=== PATIENT | female | born 2000 | race African-American/Black ===

== ENCOUNTER 2022-06-15 18:08 | Emergency (ER) | payer OTHER, SELFPAY ==
--- NOTE | ~2022-06-15 | XR_ITS ---
EXAMINATION: XR CHEST CLINICAL INFORMATION: Chest pain COMPARISON: Chest x-ray on 10/14/2015 TECHNIQUE: 2 views of the chest were obtained. FINDINGS: The cardiac silhouette is normal. Diminished lung volumes. There are no areas of consolidation. There are no pleural effusions or pneumothoraces. The bones and soft tissues are unremarkable for the patient's age. XR/XR chest 2V IMPRESSION: Diminished lung volumes.
[2022-06-15 18:29] VITALS: BP 141/78; PULSE 101; RESP 18; TEMP 36.1; O2SAT 98; BMI 36.6
--- NOTE | 2022-06-15 18:29 | ED_ITS ---
HPI - General Adult General Chief complaint: Dizziness <OTF Santos - Last Filed: 06/15/22 18:32> Stated complaint: Dizziness/?needs blood transfussion <OTF Santos - Last Filed: 06/15/22 18:32> Time Seen by Provider: 06/15/22 23:19 <OTF Santos - Last Filed: 06/15/22 18:32> Source: patient <Merlin Carrera MD - Last Filed: 06/16/22 06:29> Mode of arrival: ambulatory <Merlin Carrera MD - Last Filed: 06/16/22 06:29> Limitations: no limitations <Merlin Carrera MD - Last Filed: 06/16/22 06:29> History of Present Illness HPI narrative: Patient with history of dysfunctional uterine bleed with iron deficiency anemia not taking her iron pills for last few days complaining of weakness and dizziness feel dry passing or when standing short of breath on exertion had blood transfusion last year when she had similar symptoms no chest pain or palpitation patient did not have any vaginal bleed for last 1 month <Merlin Carrera MD - Last Filed: 06/16/22 06:29> Related Data Home medications: Previous Rx's Medication Instructions Recorded ferrous sulfate 325 mg (65 mg 325 mg PO DAILY #90 tabs 06/16/22 iron) tablet <OTF Santos - Last Filed: 06/15/22 18:32> Allergies/adverse reactions: Allergies Allergy/AdvReac Type Severity Reaction Status Date / Time No Known Allergies Allergy Verified 06/15/22 18:31 [No Known Allergies*] <OTF Santos - Last Filed: 06/15/22 18:32> Review of Systems Review of Systems: Yes all other systems are reviewed and are negative <Merlin Carrera MD - Last Filed: 06/16/22 06:29> [facility] Social History Social History: Social History Alcohol intake: never Smoked in Last 30 Days: No Use of substances other than those prescribed or required for medical reasons: No Advance Directives: No Advance Directives Information Provided: Yes <OTF Santos - Last Filed: 06/15/22 18:32> Physical Exam ED Vital Signs: Vital Signs - 24 hr 06/15/22 18:29 06/15/22 23:12 06/15/22 23:15 Temperature 96.9 F 98.2 F Pulse Rate 101 H 94 94 Respiratory Rate 18 18 Blood Pressure 141/78 H 110/50 L 122/71 Pulse Oximetry 98 100 Oxygen Delivery Method Room Air Room Air 06/15/22 23:13 06/15/22 23:15 06/16/22 00:21 Temperature Pulse Rate 96 109 H 96 Respiratory Rate 16 Blood Pressure 122/71 112/76 121/70 Pulse Oximetry 98 Oxygen Delivery Method Room Air 06/16/22 01:12 Temperature 98.0 F Pulse Rate 91 Respiratory Rate 18 Blood Pressure 101/58 L Pulse Oximetry 100 Oxygen Delivery Method Room Air BMI result Body Mass Index 36.6 <OTF Santos - Last Filed: 06/15/22 18:32> Vital Signs - 24 hr 06/15/22 18:29 06/15/22 23:12 06/15/22 23:15 Temperature 96.9 F 98.2 F Pulse Rate 101 H 94 94 Respiratory Rate 18 18 Blood Pressure 141/78 H 110/50 L 122/71 Pulse Oximetry 98 100 Oxygen Delivery Method Room Air Room Air 06/15/22 23:13 06/15/22 23:15 06/16/22 00:21 Temperature Pulse Rate 96 109 H 96 Respiratory Rate 16 Blood Pressure 122/71 112/76 121/70 Pulse Oximetry 98 Oxygen Delivery Method Room Air 06/16/22 01:12 Temperature 98.0 F Pulse Rate 91 Respiratory Rate 18 Blood Pressure 101/58 L Pulse Oximetry 100 Oxygen Delivery Method Room Air BMI result Body Mass Index 36.6 <Merlin Carrera MD - Last Filed: 06/16/22 06:29> Appearance: Alert. Oriented X3. No acute distress. Eyes: Pallor+++ ENT: Pharynx normal. Oral Mucosa moist Neck: Normal inspection. Neck supple. CVS: Normal heart rate and rhythm. Pulses normal. Respiratory: No respiratory distress. Equal air entry bilateral, no wheezing/rales/rhonchi Abdomen: Soft and nontender. Bowel sounds are present, no mass palpable, no CVA tenderness Skin: Skin warm and dry. Normal skin color. Normal skin turgor. Extremities: No lower extremity edema. No calf tenderness Neuro: Oriented X 3. No motor deficit. No sensory deficit.No cerebellar signs , cranial nerves II-XII intact <Merlin Carrera MD - Last Filed: 06/16/22 06:29> Course Course Course Narrative: RME - 21 yo female presents to the ER with recurrent episodes of dizziness and SOB associated with chest pains today, concern for needing a blood transfusion. She reports history of needing a blood transfusion a few months ago with similar symptoms. She states low iron. Denies heavy menses currently. HR 100-120 in triage. BP stable 140s. Not currently on OCP. Will get labs, EKG, coags, CXR. <OTF Santos - Last Filed: 06/15/22 18:32> Medications Administered Discontinued Medications Generic Name Dose Route Start Last Admin Trade Name Freq PRN Reason Stop Dose Admin Ferrous Sulfate 324 mg 06/16/22 00:20 06/16/22 00:34 Ferrous Sulfate 324 Mg Tablet.Dr MICHAEL 06/16/22 00:21 324 mg ONCE ONE Administration <OTF Santos - Last Filed: 06/15/22 18:32> Medications Administered Discontinued Medications Generic Name Dose Route Start Last Admin Trade Name Freq PRN Reason Stop Dose Admin Ferrous Sulfate 324 mg 06/16/22 00:20 06/16/22 00:34 Ferrous Sulfate 324 Mg Tablet.Dr MICHAEL 06/16/22 00:21 324 mg ONCE ONE Administration <Merlin Carrera MD - Last Filed: 06/16/22 06:29> Medical Decision Making Medical Decision Making [facility] Narrative: Patient has significant anemia hemoglobin 8.9 with hematocrit of 30 low MCV suggestive of iron deficiency anemia patient was given iron tablet. No orthostatic hypotension notice in the ER will discharge patient home advised to continue iron tablets and follow with PCP <Merlin Carrera MD - Last Filed: 06/16/22 06:29> Lab Data [facility] Lab Attestation statement: I reviewed the patient's lab results. <Merlin Carrera MD - Last Filed: 06/16/22 06:29> Result Diagrams: 06/15/22 19:44 06/15/22 19:44 <OTF Santos - Last Filed: 06/15/22 18:32> Labs: Lab Results 06/15/22 06/15/22 06/15/22 Range/Units 19:44 19:44 19:44 WBC 9.9 (4.8-10.8) X10*3/uL RBC 4.35 (4.20-5.50) X10*6/uL Hgb 8.9 L (12.0-16.0) g/dl Hct 30.0 L (37.0-47.0) % MCV 69.0 L (80.0-98.0) fL MCH 20.5 L (27.0-33.0) pg MCHC 29.7 L (31.0-35.0) g/dl RDW 17.0 H (11.0-16.0) % Plt Count 443 H (160-400) X10*3/uL MPV 8.8 L (9.4-12.3) fL Immature Gran % (Auto) 0.4 (0.0-0.4) % Neut % (Auto) 70.4 (45-73) % Lymph % (Auto) 25.0 (20-40) % [place] % (Auto) 3.1 (2-11) % Eos % (Auto) 0.9 (0-4) % Baso % (Auto) 0.2 (0-2) % Lymph # (Auto) 2.5 (1.2-4.9) X10*3/uL [place] # (Auto) 0.3 (0.1-1.2) X10*3/uL Eos # (Auto) 0.1 (0.0-0.4) X10*3/uL Baso # (Auto) 0.0 (0.0-0.2) X10*3/uL Abs Immat Gran (auto) 0.04 H (0.00-0.03) X10*3/uL Absolute Neuts (auto) 7.0 (2.0-8.3) x10*3/uL Absolute Nucleated RBC 0.000 (0.0-0.012) X10*3/uL Nucleated RBC % (auto) 0.0 (0.0-0.2) /100WBC PT 13.1 (10.0-13.1) SEC INR 1.1 (0.9-1.1) APTT 31.6 (26.0-36.4) SEC Sodium 137 (135-145) mmol/L Potassium 4.2 (3.3-5.1) mmol/L Chloride 102 (96-108) mmol/L Carbon Dioxide 24 (22-29) mmol/L Anion Gap 15 (12-20) BUN 10 (9-16) mg/dL Creatinine 0.79 (0.5-1.4) mg/dL Estim Creat Clear Calc 129.5 Estimated GFR > 60 Random Glucose 181 H (60-115) mg/dL Calcium 9.1 (8.4-10.2) mg/dL Magnesium 2.0 (1.6-2.6) mg/dL Total Bilirubin 0.8 (0.0-1.0) mg/dL Direct Bilirubin 0.3 (0.0-0.5) mg/dL AST 10 (5-31) U/L ALT 10 (0-31) U/L Alkaline Phosphatase 76 (39-117) U/L Troponin I High Sens (<3.5-17.0) ng/L Total Protein 7.2 (6.5-8.0) g/dL Albumin 4.1 (3.5-5.0) g/dL Urine Color Urine Appearance Urine pH (5.0-9.0) Ur Specific [place] (1.005-1.025) Urine Protein (Neg-Trace) mg/dL Urine Glucose (UA) (Negative) mg/dL Urine Ketones (Negative) mg/dL Urine Blood (Negative) Urine Nitrite (Negative) Ur Leukocyte Esterase (Negative) Urine RBC (0-2) /HPF Urine WBC (0-5) /HPF Ur Squamous Epith Cells (0-2) /HPF Urine Bacteria (None Seen) Hyaline Casts (0-2) /LPF Urine Test (NEGATIVE) 06/15/22 06/16/22 06/16/22 Range/Units 19:44 00:21 00:21 WBC (4.8-10.8) X10*3/uL RBC (4.20-5.50) X10*6/uL Hgb (12.0-16.0) g/dl Hct (37.0-47.0) % MCV (80.0-98.0) fL MCH (27.0-33.0) pg MCHC (31.0-35.0) g/dl RDW (11.0-16.0) % Plt Count (160-400) X10*3/uL MPV (9.4-12.3) fL Immature Gran % (Auto) (0.0-0.4) % Neut % (Auto) (45-73) % Lymph % (Auto) (20-40) % [place] % (Auto) (2-11) % Eos % (Auto) (0-4) % Baso % (Auto) (0-2) % Lymph # (Auto) (1.2-4.9) X10*3/uL [place] # (Auto) (0.1-1.2) X10*3/uL Eos # (Auto) (0.0-0.4) X10*3/uL Baso # (Auto) (0.0-0.2) X10*3/uL Abs Immat Gran (auto) (0.00-0.03) X10*3/uL Absolute Neuts (auto) (2.0-8.3) x10*3/uL Absolute Nucleated RBC (0.0-0.012) X10*3/uL Nucleated RBC % (auto) (0.0-0.2) /100WBC PT (10.0-13.1) SEC INR (0.9-1.1) APTT (26.0-36.4) SEC Sodium (135-145) mmol/L Potassium (3.3-5.1) mmol/L Chloride (96-108) mmol/L Carbon Dioxide (22-29) mmol/L Anion Gap (12-20) BUN (9-16) mg/dL Creatinine (0.5-1.4) mg/dL Estim Creat Clear Calc Estimated GFR Random Glucose (60-115) mg/dL Calcium (8.4-10.2) mg/dL Magnesium (1.6-2.6) mg/dL Total Bilirubin (0.0-1.0) mg/dL Direct Bilirubin (0.0-0.5) mg/dL AST (5-31) U/L ALT (0-31) U/L Alkaline Phosphatase (39-117) U/L Troponin I High Sens < 3.5 (<3.5-17.0) ng/L Total Protein (6.5-8.0) g/dL Albumin (3.5-5.0) g/dL Urine Color Yellow Urine Appearance Turbid Urine pH 5.5 (5.0-9.0) Ur Specific [place] 1.025 (1.005-1.025) Urine Protein 30 (1+) H (Neg-Trace) mg/dL Urine Glucose (UA) Negative (Negative) mg/dL Urine Ketones Trace (Negative) mg/dL Urine Blood Negative (Negative) Urine Nitrite Negative (Negative) Ur Leukocyte Esterase Negative (Negative) Urine RBC 3-5 H (0-2) /HPF Urine WBC 6-10 H (0-5) /HPF Ur Squamous Epith Cells 6-10 (0-2) /HPF Urine Bacteria 2+ (None Seen) Hyaline Casts 3-5 (0-2) /LPF Urine Test NEGATIVE (NEGATIVE) <OTF Santos - Last Filed: 06/15/22 18:32> Lab Results 06/15/22 06/15/22 06/15/22 Range/Units 19:44 19:44 19:44 WBC 9.9 (4.8-10.8) X10*3/uL RBC 4.35 (4.20-5.50) X10*6/uL Hgb 8.9 L (12.0-16.0) g/dl Hct 30.0 L (37.0-47.0) % MCV 69.0 L (80.0-98.0) fL MCH 20.5 L (27.0-33.0) pg MCHC 29.7 L (31.0-35.0) g/dl RDW 17.0 H (11.0-16.0) % Plt Count 443 H (160-400) X10*3/uL MPV 8.8 L (9.4-12.3) fL Immature Gran % (Auto) 0.4 (0.0-0.4) % Neut % (Auto) 70.4 (45-73) % Lymph % (Auto) 25.0 (20-40) % [place] % (Auto) 3.1 (2-11) % Eos % (Auto) 0.9 (0-4) % Baso % (Auto) 0.2 (0-2) % Lymph # (Auto) 2.5 (1.2-4.9) X10*3/uL [place] # (Auto) 0.3 (0.1-1.2) X10*3/uL Eos # (Auto) 0.1 (0.0-0.4) X10*3/uL Baso # (Auto) 0.0 (0.0-0.2) X10*3/uL Abs Immat Gran (auto) 0.04 H (0.00-0.03) X10*3/uL Absolute Neuts (auto) 7.0 (2.0-8.3) x10*3/uL Absolute Nucleated RBC 0.000 (0.0-0.012) X10*3/uL Nucleated RBC % (auto) 0.0 (0.0-0.2) /100WBC PT 13.1 (10.0-13.1) SEC INR 1.1 (0.9-1.1) APTT 31.6 (26.0-36.4) SEC Sodium 137 (135-145) mmol/L Potassium 4.2 (3.3-5.1) mmol/L Chloride 102 (96-108) mmol/L Carbon Dioxide 24 (22-29) mmol/L Anion Gap 15 (12-20) BUN 10 (9-16) mg/dL Creatinine 0.79 (0.5-1.4) mg/dL Estim Creat Clear Calc 129.5 Estimated GFR > 60 Random Glucose 181 H (60-115) mg/dL Calcium 9.1 (8.4-10.2) mg/dL Magnesium 2.0 (1.6-2.6) mg/dL Total Bilirubin 0.8 (0.0-1.0) mg/dL Direct Bilirubin 0.3 (0.0-0.5) mg/dL AST 10 (5-31) U/L ALT 10 (0-31) U/L Alkaline Phosphatase 76 (39-117) U/L Troponin I High Sens (<3.5-17.0) ng/L Total Protein 7.2 (6.5-8.0) g/dL Albumin 4.1 (3.5-5.0) g/dL Urine Color Urine Appearance Urine pH (5.0-9.0) Ur Specific [place] (1.005-1.025) Urine Protein (Neg-Trace) mg/dL Urine Glucose (UA) (Negative) mg/dL Urine Ketones (Negative) mg/dL Urine Blood (Negative) Urine Nitrite (Negative) Ur Leukocyte Esterase (Negative) Urine RBC (0-2) /HPF Urine WBC (0-5) /HPF Ur Squamous Epith Cells (0-2) /HPF Urine Bacteria (None Seen) Hyaline Casts (0-2) /LPF Urine Test (NEGATIVE) 06/15/22 06/16/22 06/16/22 Range/Units 19:44 00:21 00:21 WBC (4.8-10.8) X10*3/uL RBC (4.20-5.50) X10*6/uL Hgb (12.0-16.0) g/dl Hct (37.0-47.0) % MCV (80.0-98.0) fL MCH (27.0-33.0) pg MCHC (31.0-35.0) g/dl RDW (11.0-16.0) % Plt Count (160-400) X10*3/uL MPV (9.4-12.3) fL Immature Gran % (Auto) (0.0-0.4) % Neut % (Auto) (45-73) % Lymph % (Auto) (20-40) % [place] % (Auto) (2-11) % Eos % (Auto) (0-4) % Baso % (Auto) (0-2) % Lymph # (Auto) (1.2-4.9) X10*3/uL [place] # (Auto) (0.1-1.2) X10*3/uL Eos # (Auto) (0.0-0.4) X10*3/uL Baso # (Auto) (0.0-0.2) X10*3/uL Abs Immat Gran (auto) (0.00-0.03) X10*3/uL Absolute Neuts (auto) (2.0-8.3) x10*3/uL Absolute Nucleated RBC (0.0-0.012) X10*3/uL Nucleated RBC % (auto) (0.0-0.2) /100WBC PT (10.0-13.1) SEC INR (0.9-1.1) APTT (26.0-36.4) SEC Sodium (135-145) mmol/L Potassium (3.3-5.1) mmol/L Chloride (96-108) mmol/L Carbon Dioxide (22-29) mmol/L Anion Gap (12-20) BUN (9-16) mg/dL Creatinine (0.5-1.4) mg/dL Estim Creat Clear Calc Estimated GFR Random Glucose (60-115) mg/dL Calcium (8.4-10.2) mg/dL Magnesium (1.6-2.6) mg/dL Total Bilirubin (0.0-1.0) mg/dL Direct Bilirubin (0.0-0.5) mg/dL AST (5-31) U/L ALT (0-31) U/L Alkaline Phosphatase (39-117) U/L Troponin I High Sens < 3.5 (<3.5-17.0) ng/L Total Protein (6.5-8.0) g/dL Albumin (3.5-5.0) g/dL Urine Color Yellow Urine Appearance Turbid Urine pH 5.5 (5.0-9.0) Ur Specific [place] 1.025 (1.005-1.025) Urine Protein 30 (1+) H (Neg-Trace) mg/dL Urine Glucose (UA) Negative (Negative) mg/dL Urine Ketones Trace (Negative) mg/dL Urine Blood Negative (Negative) Urine Nitrite Negative (Negative) Ur Leukocyte Esterase Negative (Negative) Urine RBC 3-5 H (0-2) /HPF Urine WBC 6-10 H (0-5) /HPF Ur Squamous Epith Cells 6-10 (0-2) /HPF Urine Bacteria 2+ (None Seen) Hyaline Casts 3-5 (0-2) /LPF Urine Test NEGATIVE (NEGATIVE) <Merlin Carrera MD - Last Filed: 06/16/22 06:29> Independent Interpretation I performed an independent interpretation of an: EKG <Merlin Carrera MD - Last Filed: 06/16/22 06:29> Interpretation: Number sinus rhythm heart rate 95 beats per minute of interval normal axis no acute ST-T changes impression normal EKG <Merlin Carrera MD - Last Filed: 06/16/22 06:29> Discharge Plan Discharge Clinical Impression: Iron deficiency anemia <OTF Santos - Last Filed: 06/15/22 18:32> Patient Disposition: Home, Self-Care <OTF Santos - Last Filed: 06/15/22 18:32> Instructions: Iron Deficiency Anemia (ED) <OTF Santos - Last Filed: 06/15/22 18:32> Additional Instructions: Take iron tablets daily Drink plenty of fluids Follow-up with PCP if any concerns <OTF Santos - Last Filed: 06/15/22 18:32> Prescriptions: New ferrous sulfate 325 mg (65 mg iron) tablet 325 mg PO DAILY Qty: 90 0RF <OTF Santos - Last Filed: 06/15/22 18:32> Interventions: ED Discharge Assessment Last Done: 06/16/22 02:36 <OTF Santos - Last Filed: 06/15/22 18:32> Discharge Date/Time: 06/16/22 02:37 <OTF Santos - Last Filed: 06/15/22 18:32>
--- NOTE | 2022-06-15 18:31 | ECG_ITS ---
Test Reason : CHEST PAIN Blood Pressure : / mmHG Vent. Rate : 095 BPM Atrial Rate : 095 BPM P-R Int : 164 ms QRS Dur : 076 ms QT Int : 340 ms P-R-T Axes : 047 016 021 degrees QTc Int : 427 ms Normal sinus rhythm Normal ECG No previous ECGs available Referred By: Gege Lock Electronically Signed By:BETTY RAHMAN
[2022-06-15 19:50] LABS: MANUAL DIFF FLAG NO
[2022-06-15 19:59] LABS: Basophils Percent Auto 0.2 % (0-2); Eosinophils Absolute Auto 0.1 X10*3/uL (0.0-0.4); Eosinophils Percent Auto 0.9 % (0-4); Hemoglobin 8.9 g/dl (12.0-16.0); Imm Gran Abs Auto 0.04 X10*3/uL (0.00-0.03); Imm Gran Pct Auto 0.4 % (0.0-0.4); Lymphocytes Absolute Auto 2.5 X10*3/uL (1.2-4.9); Mean Corpuscular HGB Conc 29.7 g/dl (31.0-35.0); Mean Corpuscular Hemoglobin 20.5 pg (27.0-33.0); Mean Platelet Volume 8.8 fL (9.4-12.3); Monocytes Absolute Auto 0.3 X10*3/uL (0.1-1.2); Monocytes Percent Auto 3.1 % (2-11); Neutrophils Percent Auto 70.4 % (45-73); Platelet Count 443 X10*3/uL (160-400); Red Blood Count 4.35 X10*6/uL (4.20-5.50); White Blood Count 9.9 X10*3/uL (4.8-10.8)
[2022-06-15 20:02] LABS: INTERNATIONAL NORM RATIO 1.1 (0.9-1.1); Prothrombin Time 13.1 SEC (10.0-13.1)
[2022-06-15 20:05] LABS: Partial Thromboplastin Time 31.6 SEC (26.0-36.4)
[2022-06-15 20:11] LABS: Alanine Aminotransferase 10 U/L (0-31); Albumin Level 4.1 g/dL (3.5-5.0); Alkaline Phosphatase 76 U/L (39-117); Anion Gap 15 (12-20); Aspartate Amino Transferase 10 U/L (5-31); Bilirubin Direct 0.3 mg/dL (0.0-0.5); Bilirubin Total 0.8 mg/dL (0.0-1.0); Blood Urea Nitrogen 10 mg/dL (9-16); Calcium 9.1 mg/dL (8.4-10.2); Carbon Dioxide 24 mmol/L (22-29); Chloride 102 mmol/L (96-108); Creatinine Clr Calc Pharmacy 129.5; Estimated Glomerular Filt Rate > 60; Glucose Random 181 mg/dL (60-115); Potassium 4.2 mmol/L (3.3-5.1); Sodium 137 mmol/L (135-145); Total Protein 7.2 g/dL (6.5-8.0)
[2022-06-15 20:23] LABS: Troponin-I High Sensitivity < 3.5 ng/L (<3.5-17.0)
[2022-06-15 23:12] VITALS: BP 110/50; PULSE 94
[2022-06-15 23:13] VITALS: BP 122/71; PULSE 96
[2022-06-15 23:15] VITALS: BP 112/76; BP 122/71; PULSE 109; PULSE 94; RESP 18; TEMP 36.8; O2SAT 100
[2022-06-16 00:21] VITALS: BP 121/70; PULSE 96; RESP 16; O2SAT 98
[2022-06-16 00:28] LABS: Appearance Urine Turbid; Color Urine Yellow; Glucose Urine UA Negative (Negative); Leukocyte Esterase Urine Negative (Negative); Nitrite Urine Negative (Negative); PH 5.5 (5.0-9.0); Specific Gravity - Urine 1.025 (1.005-1.025); UMIC TRIGGER UACC YES; Urine Blood Negative (Negative); Urine Ketones Trace mg/dL (Negative); Urine Protein 30 (1+) mg/dL (Neg-Trace)
[2022-06-16 00:30] LABS: UPreg QC Valid YES; Urine Pregnancy NEGATIVE (NEGATIVE)
[2022-06-16] MEDS: Ferrous Sulfate 324 MG TABLET.DR PO (00:34)
[2022-06-16 00:50] LABS: Bacteria Urine 2+ (None Seen); UACC Culture Trigger YES
[2022-06-16 01:12] VITALS: BP 101/58; PULSE 91; RESP 18; TEMP 36.7; O2SAT 100
== END 2022-06-16 02:37 | disposition home or self-care (01) ==
PROVIDERS: Physician Assistant; Emergency Provider Internal Medicine
DX: D50.9 Iron deficiency anemia, unspecified (principal); R42 Dizziness and giddiness; R06.02 Shortness of breath; Z79.899 Other long term (current) drug therapy
CPT/HCPCS: 36415; 71046; 80048; 80076; 81001; 81025; 83735; 84484; 85025; 85610; 85730; 87086; 93005; 99284; 99285

== ENCOUNTER 2023-02-22 15:01 | Outpatient (REF) | payer OTHER, SELFPAY ==
[2023-02-22 15:58] LABS: MANUAL DIFF FLAG NO
[2023-02-22 16:13] LABS: Basophils Absolute Auto 0.1 X10*3/uL (0.0-0.2); Basophils Percent Auto 0.6 % (0-2); Eosinophils Absolute Auto 0.1 X10*3/uL (0.0-0.4); Eosinophils Percent Auto 1.6 % (0-4); Hematocrit 29.2 % (37.0-47.0); Hemoglobin 8.9 g/dl (12.0-16.0); Imm Gran Abs Auto 0.12 X10*3/uL (0.00-0.03); Imm Gran Pct Auto 1.3 % (0.0-0.4); Mean Corpuscular HGB Conc 30.5 g/dl (31.0-35.0); Mean Corpuscular Hemoglobin 24.3 pg (27.0-33.0); Mean Corpuscular Volume 79.8 fL (80.0-98.0); Mean Platelet Volume 9.2 fL (9.4-12.3); Monocytes Absolute Auto 0.5 X10*3/uL (0.1-1.2); Monocytes Percent Auto 5.6 % (2-11); Neutrophils Absolute Auto 5.2 x10*3/uL (2.0-8.3); Neutrophils Percent Auto 57.9 % (45-73); Platelet Count 404 X10*3/uL (160-400); Red Blood Count 3.66 X10*6/uL (4.20-5.50); Red Cell Distribution Width 14.4 % (11.0-16.0)
[2023-02-22 16:50] LABS: Alanine Aminotransferase 21 U/L (0-31); Albumin Level 4.1 g/dL (3.5-5.0); Alkaline Phosphatase 78 U/L (39-117); Anion Gap 14 (12-20); Aspartate Amino Transferase 19 U/L (5-31); Bilirubin Total 0.5 mg/dL (0.0-1.0); Blood Urea Nitrogen 9 mg/dL (9-16); Calcium 9.9 mg/dL (8.4-10.2); Carbon Dioxide 26 mmol/L (22-29); Chloride 103 mmol/L (96-108); Cholesterol 175 mg/dL (<200); Estimated Glomerular Filt Rate > 60; Glucose Fasting 105 mg/dL (60-99); HDL Cholesterol 38 mg/dL (>40); Iron 24 mcg/dL (30-160); LDL Cholesterol Calculated 120 mg/dL (<100); Percent Iron Saturation 7 % (15-50); Sodium 139 mmol/L (135-145); Total Iron Binding Capacity 334 mcg/dL (228-428); Total Protein 7.7 g/dL (6.5-8.0); Triglycerides 87 mg/dL (<150); Unsaturated Iron Binding 310 ug/dL
[2023-02-22 17:08] LABS: Ferritin 21 ng/mL (10-122); Free T4 (Free Thyroxine) 0.92 ng/dL (0.71-1.85); Thyroid Stimulating Hormone 1.39 uIU/mL (0.32-4.0)
[2023-02-22 17:23] LABS: Folate 4.1 ng/mL (> or = 4.0); Vitamin B12 829 pg/mL (200-900)
== END 2023-02-22 15:02 | disposition home or self-care (01) ==
LOC: HO.HMGCLDS 15:01
PROVIDERS: PCP Internal Medicine; Visit Provider Internal Medicine
DX: D64.9 Anemia, unspecified (principal); E78.5 Hyperlipidemia, unspecified
CPT/HCPCS: 36415; 80053; 80061; 82607; 82728; 82746; 83540; 84439; 84443; 85025

== ENCOUNTER 2023-05-03 14:44 | Outpatient (AMB) | payer OTHER, SELFPAY ==
--- NOTE | 2023-05-03 15:09 | A.OFFVIS_ITS ---
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 Doing well with concerns: Irregular menses. Currently on Apri, ran out of her 1st pack. She is not always eating healthy, exercise once in a while. Irregular menses, skipping months at a time, bled up to month at a time (had a blood transfusion), last cycle lasted two weeks. She takes her iron doses sporadiaclly. Never diagnosed with PCOS, she denies any acne or hirsutism. Never sexually active. She denies vaginal itching and irritation. Denies family history of breast, ovarian or colon cancer. First pelvic exam. She denies any contraindications to control such as: migraines with aura, history of DVT or pulmonary emboli, high blood pressure, liver disease, thrombolic disorders, Lupus, +COREY, breast cancer, or smoking. [facility] Social History Household Members Other:: Mother and Father Alcohol intake: never Current occupational status: unemployed Female Reproductive History Menstrual Age of Menarche: 8 Duration of menses: 6-7 days Date of last menstrual period: 04/07/23 control method: pills Total pregnancies: 0 Review of Systems Const All systems reviewed & are unremarkable except as noted in HPI and below Reports as per HPI Eyes Reports no additional complaints ENT Reports no additional complaints Card Reports no additional complaints Resp Reports no additional complaints GI Reports as per HPI and Reports no additional complaints Reports as per HPI Musc Reports no additional complaints Skin/Breast Reports as per HPI Neuro Reports no additional complaints Psych Reports no additional complaints Endo Reports no additional complaints [place]/Lymph Reports no additional complaints Aller/Immun Reports no additional complaints Physical Exam Vital Signs: BMI result Body Mass Index 38.1 Const General: cooperative, healthy appearing, no acute distress, well developed and alert Orientation/consciousness: patient oriented x3 HEENT Head: Yes normal to inspection Eyes General: appearance normal, both eyes and all related structures Neck Neck: Yes normal visual inspection Thyroid: Thyroid normal Chest Chest palpation & inspection: normal inspection of the chest and other (no puckering, dimpling, peau de orange, retraction, discharge, masses) Breast/axilla inspection: normal inspection of the breasts Breast/axilla palpation: normal palpation of the breasts Resp Effort & Inspection: normal respiratory effort GI Other: obese Inspection: Yes normal to inspection Palpation (GI): Soft to palpation Rectal Exam - Female: deferred Other: Tense with 1st exam General: Yes bladder normal to palpation External Female Exam: normal external appearance and normal appearance of the urethra Speculum Exam - Vagina: normal appearance of the vagina, normal palpation and normal vaginal discharge Speculum Exam - Cervix: normal appearance of the cervix and normal palpation Bimanual exam- vagina & uterus: normal bimanual exam, normal palpation, uterine size normal, bladder normal to palpation, normal palpation and non-tender Bimanual Exam- Adnexa, other: no masses Skin General skin exam: no rashes or lesions noted Rashes: no rashes Neuro General: patient oriented x3 Cognition (Neuro): normal cognition Extrem General: Yes normal to inspection Psych Attitude: cooperative Thought process: Normal thought process present Assessment & Plan Assessment & Plan (1) Encounter for well woman exam with routine gynecological exam: Code(s): Z01.419 - Encounter for gynecological examination (general) (routine) without abnormal findings (2) Abnormal uterine bleeding (AUB): Code(s): N93.9 - Abnormal uterine and vaginal bleeding, unspecified Plan Discussed: Current recommendations for pap smears per ASCCP guidelines. Breast awareness and periodic breast exams. Maintain a healthy lifestyle including a well balanced diet and routine exercise. Discussed Mediterranean diet and handout given. Advised to follow-up with her PCP did discuss her elevated blood sugar, lipid level, anemia. Use condoms for STI and prevention if indicated. Patient agrees to getting the ultrasound and will follow-up in the office for a pill check at the same visit. control hormone use warnings: go to ER if and loss of vision, blindness, severe headache, chest pain or difficulty breathing, severe abdominal pain, or any pain or swelling in an extremity. All of her questions and concerns were addressed to the best of my ability. 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 Orders: Orders US pelvic limited Today N93.9 - Abnormal uterine and vaginal bleeding, unspecified Bacterial Vaginosis Panel Today N89.8 - Other specified noninflammatory disorders of vagina CT NG by PCR Today N89.8 - Other specified noninflammatory disorders of vagina Pap Smear Today Z12.4 - Encounter for screening for malignant neoplasm of cervix Coding Level of Care Code New Pt Prev Care 18-39yr([id number] Diagnoses Encounter for well woman exam with routine gynecological exam Z01.419 Abnormal uterine bleeding (AUB) N93.9
[2023-05-03 15:10] VITALS: BP 118/68; BMI 38.1
== END 2023-05-03 16:22 | disposition home or self-care (01) ==
PROVIDERS: PCP Internal Medicine; Visit Provider Advanced Practice Midwife
DX: Z01.419 Encounter for gynecological examination (general) (routine) without abnormal findings (principal); N93.9 Abnormal uterine and vaginal bleeding, unspecified
CPT/HCPCS: 99385

== ENCOUNTER 2023-05-03 14:44 | Outpatient (REF) | payer OTHER, SELFPAY ==
[2023-05-04 05:24] LABS: CT PCR NOT DETECTED (Not Detect.); NG PCR NOT DETECTED (Not Detect.)
[2023-05-04 12:21] LABS: BV Int Neg Control Negative (Negative); BV Int Pos Control Positive (Positive)
== END 2023-05-03 14:45 | disposition home or self-care (01) ==
LOC: HO.LNP 14:44
PROVIDERS: PCP Internal Medicine; Visit Provider Advanced Practice Midwife
DX: Z01.419 Encounter for gynecological examination (general) (routine) without abnormal findings (principal); N89.8 Other specified noninflammatory disorders of vagina; N93.9 Abnormal uterine and vaginal bleeding, unspecified
CPT/HCPCS: 0353U; 87480; 87510; 87660; 88142; 99385

== ENCOUNTER 2023-12-12 10:37 | Outpatient (REF) | payer OTHER, SELFPAY ==
[2023-12-12 10:55] LABS: MANUAL DIFF FLAG NO
[2023-12-12 11:44] LABS: Basophils Absolute Auto 0.1 X10*3/uL (0.0-0.2); Basophils Percent Auto 0.6 % (0-2); Eosinophils Absolute Auto 0.1 X10*3/uL (0.0-0.4); Eosinophils Percent Auto 1.1 % (0-4); Hematocrit 34.3 % (37.0-47.0); Hemoglobin 10.6 g/dl (12.0-16.0); Imm Gran Abs Auto 0.04 X10*3/uL (0.00-0.03); Imm Gran Pct Auto 0.4 % (0.0-0.4); Lymphocytes Absolute Auto 2.5 X10*3/uL (1.2-4.9); Lymphocytes Percent Auto 28.3 % (20-40); Mean Corpuscular HGB Conc 30.9 g/dl (31.0-35.0); Mean Corpuscular Hemoglobin 23.6 pg (27.0-33.0); Mean Corpuscular Volume 76.2 fL (80.0-98.0); Mean Platelet Volume 9.1 fL (9.4-12.3); Monocytes Absolute Auto 0.5 X10*3/uL (0.1-1.2); Monocytes Percent Auto 5.6 % (2-11); Neutrophils Absolute Auto 5.7 x10*3/uL (2.0-8.3); Platelet Count 406 X10*3/uL (160-400); Red Cell Distribution Width 15.4 % (11.0-16.0); White Blood Count 8.9 X10*3/uL (4.8-10.8)
[2023-12-12 12:13] LABS: Alanine Aminotransferase 9 U/L (0-31); Albumin Level 4.2 g/dL (3.5-5.0); Alkaline Phosphatase 62 U/L (39-117); Anion Gap 14 (12-20); Aspartate Amino Transferase 11 U/L (5-31); Bilirubin Total 0.4 mg/dL (0.0-1.0); Blood Urea Nitrogen 11 mg/dL (9-16); Calcium 9.5 mg/dL (8.4-10.2); Carbon Dioxide 25 mmol/L (22-29); Chloride 104 mmol/L (96-108); Cholesterol 174 mg/dL (<200); Estimated Glomerular Filt Rate > 60; Glucose Random 99 mg/dL (60-115); HDL Cholesterol 39 mg/dL (>40); LDL Cholesterol Calculated 119 mg/dL (<100); Potassium 3.9 mmol/L (3.3-5.1); Sodium 139 mmol/L (135-145); Total Protein 7.7 g/dL (6.5-8.0); Triglycerides 83 mg/dL (<150)
[2023-12-12 12:27] LABS: TSH reflex Free T4 0.64 uIU/mL (0.32-4.0); Vitamin D 25-OH Total 13.4 ng/mL (>30)
[2023-12-12 14:02] LABS: Amphetamine Screen Urine Not Detected (Not Detect); Barbiturates, Urine Not Detected (Not Detect); Benzodiazepines Screen Urine Not Detected (Not Detect); Buprenorphine Scr Not Detected (Not Detect); Cannabinoid Screen Urine Not Detected (Not Detect); Cocaine Screen Urine Not Detected (Not Detect); Fentanyl, urine Not Detected (Not Detect); Methadone Screen, Urine Not Detected (Not Detect); Opiate Screen Urine Not Detected (Not Detect); Oxycodone Screen Urine Not Detected (Not Detect); Phencyclidine Screen Urine Not Detected (Not Detect)
== END 2023-12-12 10:38 | disposition home or self-care (01) ==
LOC: HO.LAB 10:37
PROVIDERS: PCP Internal Medicine; Visit Provider Physician Assistant
DX: F41.9 Anxiety disorder, unspecified (principal); F32.9 Major depressive disorder, single episode, unspecified; F50.9 Eating disorder, unspecified; F98.8 Other specified behavioral and emotional disorders with onset usually occurring in childhood and adolescence; E66.9 Obesity, unspecified
CPT/HCPCS: 80053; 80061; 80307; 82306; 84443; 85025

== ENCOUNTER 2025-02-28 11:26 | Outpatient (REF) | payer OTHER, SELFPAY ==
--- NOTE | 2025-02-28 11:32 | ECG_ITS ---
Test Reason : check qt Blood Pressure : */* mmHG Vent. Rate : 89 BPM Atrial Rate : 89 BPM P-R Int : 152 ms QRS Dur : 72 ms QT Int : 352 ms P-R-T Axes : 55 26 44 degrees QTcB Int : 428 ms Normal sinus rhythm Normal ECG When compared with ECG of 15-Jun-2022 19:09, No significant change was found Referred By: Yanira Clinton Electronically Signed By: ISABEL HAMLIN MD
[2025-02-28 14:01] LABS: Baso%MD 0.3 %; Eos%MD 1.5 %; Hematocrit 34.5 % (37.0-47.0); Hemoglobin 10.1 g/dl (12.0-16.0); IG%MD 0.6 %; Lymph%MD 32.3 %; Mean Corpuscular HGB Conc 29.3 g/dl (31.0-35.0); Mean Corpuscular Hemoglobin 22.0 pg (27.0-33.0); Mean Corpuscular Volume 75.0 fL (80.0-98.0); Mono%MD 5.2 %; NRBC Abs Auto 0.000 X10*3/uL (0.0-0.012); NRBC Pct Auto 0.0 /100WBC (0.0-0.2); Neut%MD 60.1 %; Platelet Count 458 X10*3/uL (160-400); Red Blood Count 4.60 X10*6/uL (4.20-5.50); White Blood Count 8.7 X10*3/uL (4.8-10.8)
[2025-02-28 14:45] LABS: Anion Gap 10 (12-20); Blood Urea Nitrogen 9 mg/dL (9-16); Calcium 9.2 mg/dL (8.4-10.2); Carbon Dioxide 30 mmol/L (22-29); Chloride 104 mmol/L (96-108); Estimated Glomerular Filt Rate > 60; Iron 30 mcg/dL (30-160); Magnesium 2.4 mg/dL (1.6-2.6); Percent Iron Saturation 10 % (15-50); Potassium 4.3 mmol/L (3.3-5.1); Sodium 140 mmol/L (135-145); Total Iron Binding Capacity 304 mcg/dL (228-428); Unsaturated Iron Binding 274 ug/dL
[2025-02-28 14:51] LABS: Ferritin 22 ng/mL (10-122); Free T4 (Free Thyroxine) 0.89 ng/dL (0.71-1.85); Thyroid Stimulating Hormone 0.75 uIU/mL (0.32-4.0)
[2025-02-28 14:58] LABS: Eosinophils Absolute Manual 0.2 X10*3/uL (0.0-0.4); Eosinophils Percent Manual 2 % (0-4); Lymphocytes Absolute Manual 2.9 X10*3/uL (1.2-4.9); Lymphocytes Percent Manual 33 % (20-40); Monocytes Absolute Manual 0.5 X10*3/uL (0.1-1.2); Monocytes Percent Manual 6 % (2-11); Neutrophils Percent Manual 59 % (45-73)
[2025-02-28 14:59] LABS: Ovalocytes 1+ (5-14) /OIF; RBC Morphology NOTED; Smudge Cells PRESENT
[2025-02-28 15:00] LABS: Neutrophils Absolute Manual 5.1 X10*3/uL (2.0-8.3)
[2025-02-28 15:01] LABS: Folate 7.8 ng/mL (> or = 4.0); Vitamin B12 525 pg/mL (200-900)
== END 2025-02-28 11:27 | disposition home or self-care (01) ==
LOC: HO.LAB 11:26
PROVIDERS: Visit Provider Psychiatry & Neurology Psychiatry
DX: F33.2 Major depressive disorder, recurrent severe without psychotic features (principal); E61.1 Iron deficiency; R94.31 Abnormal electrocardiogram [ECG] [EKG]
CPT/HCPCS: 36415; 80048; 82306; 82607; 82728; 82746; 83036; 83090; 83540; 83615; 83735; 84425; 84439; 84443; 85007; 85027; 85652; 93005

== ENCOUNTER → 2025-02-28 11:32 | Outpatient (BNV) | payer OTHER, SELFPAY | PROVIDERS: Visit Provider Internal Medicine Cardiovascular Disease | DX: Z13.6 Encounter for screening for cardiovascular disorders (principal) | CPT/HCPCS: 93010 ==

== ENCOUNTER 2025-03-15 12:30 | Outpatient (RCR) | payer OTHER, SELFPAY ==
--- NOTE | 2025-02-15 10:36 | HO.PS.ADMBH ---
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/ PCP suggested get tested- hard to communicate- with people- Sleep in day - flip flop it- sleeping at night past few nights- Melatonin to help Past Psychiatric History: 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 Sal Rushing- [facility] telehealth hx inpatient and outpatient few x inpatient 2 x - 1st time eating do 15 - wanted to lose weight anorexic 11 and 13 - not since just resttriction not picky eater- no strong reactions to smells /sounds no panic in groups just doesn't know how to communicate 2018 2nd felt suicidal - no s/e from current meds no hx seizures [facility] Medical History (Updated 02/18/25 @ 14:15 by Leonora Harris MD) History of anemia Narrative: 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 since 10 yo - 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 - Family History: some family with depression - no completed suicides in blood relatives, no known developmental delays known; others in other countries don't know hx Social History: lives with parents- went to college for 2 1/2 years- dropped out- depression/not knowing what wanted to do next- don't do much stay in house in room siblings - older sister in [place] dentist office- Ev dad retired 77 mom work at [employer] Substance History: no Trauma History: denies Meds/Allergies Meds Home Medications ?Medication ?Instructions ?Recorded ?Confirmed ?Type bupropion HCl 300 mg 24 hr tablet, 300 mg PO DAILY 02/15/25 02/15/25 History extended release duloxetine 60 mg capsule,delayed 120 mg PO DAILY 02/15/25 02/15/25 History release Narrative: duloxetine - ? dosage few years - buproprion - no longer on bcp prior meds- antidepressants- fluoxetine; lexapro; not taking adderall in pst-= Allergies Allergies Allergy/AdvReac Type Severity Reaction Status Date / Time No Known Allergies (No Known Allergy Verified 05/03/23 15:12 Allergies*) Mental Status Exam Mental Status Exam Narrative: sitting in chair in slumped manner- , unkemp clothing- flat affect, limited eye contact Patient Orientation: Person, Place, Time and Situation Level of Consciousness: Awake Patient Behavior: Appropriate, Cooperative and Passive Mood Description: Calm and Sad Affect Description: Blunted Patient Cognition Impaired: No Ability to Follow Directions: Good Speech Pattern: Clear Hallucinations: None Delusions: Not Present Thought Process: Intact and Distracted Thought Content: positive for Intact, positive for [place] and positive for Slowed Thinking Depressive Symptoms: Increased Anxiety, Difficulty Sleeping, Increased Fatigue and Loss of Energy Judgement: Fair Assessment & Plan Assessment & Plan (1) Depression: Status: Acute Code(s): F32.A - Depression, unspecified (2) Social communication disorder: Status: Acute Code(s): F80.89 - Other developmental disorders of speech and language Plan continue meds but take wellbutrin and duloxetine in am and restart adderall in am - use php to plan routine in day to focus on other than negative thoughts consider next week add in ? abilify I wonder if this patient might be on the spectrum and resources towards that might help further growth/development/stablity - AANE might be recommend Patient educated on: medication risk/benefits, therapeutic strategies and other (wonder about developmental delay/given special ed and presentation/social issues) Informed Consent: understands and further education needed Reason for continued partial hosp. stay Substantial Risk for: rapid decompensation Certification I certify that partial hospital treatment is medically necessary due to the symptoms and problems resulting from the patient's mental illness and the failure to treat the patient at the partial hospital level of care would likely result in the patient requiring inpatient psychiatric care which could not be prevented at a less intensive level of care. Time Spent With Patient Time: Total time managing care of this patient today ____ minutes.
[2025-02-15 11:02] VITALS: BMI 38.3
[2025-02-15 11:03] VITALS: BP 101/76; PULSE 106; TEMP 36.2
--- NOTE | 2025-02-15 12:46 | PC.ADMIT ---
Patient is a 24 year old single female who self referred to PHP as she has been struggling with sxs of depression and anxiety. Patient reports she has been isolating in her home and that it is difficult to leave her home d/t severe anxiety. Patient reports history of attending PHP in the past. Patient is alert and oriented x4. She is calm and cooperative. She presented with depressed mood and affect. She denied SI, no HI. She was given a copy of her safety plan if needed. Medications were updated with patient and patients pharmacy. Regarding medications patient stated, some days I don't take it on time and forget to take it but the past few weeks I have been good at taking it everyday. She identified her supports being her parents whom she lives with currently. Patient denied using any substances currently. Remote history of using marijuana.
--- NOTE | 2025-02-21 17:02 | HO.PHP ---
Pt's case has been opened and reviewed in treatment team.
--- NOTE | 2025-02-22 22:00 | PM.EVENT ---
Event Note Date of Service: 02/22/25 Event Note: Spoke by phone wtih patient to check in. This week has been a little difficult... being at the program helps give me some structure Struggles with attention and feeling present, sometimes is unable to focus in groups for longer periods. Feels she is distracted by anxious thoughts. Depression and anxiety been threre for many years, but particularly bad for 4-5 years. ALso complains of lacking motivation, initiative, low energy, hopeless thoughts, anxiety is a big part of it . Has been on duloxetine for 120 mg for 2 yrs and Wellbutrin add on 1.5 years ago. Can not say whether these have been helpful. Feels she was just as depressed and anxious before and after addition of medications. History of ADHD, does not regularly take her stimulant. ([facility] She says she still has supply at home. WIll plan to start mood stabilizer and will start back on ADderall and may consider switching if felt to be ineffective. Denies any h/h/SI. Denies AH, VH, anger, AI or HI. Start aripiprazole 1-2 mg qhs Time Spent With Patient Time: Total time managing care of this patient today __30__ minutes.
--- NOTE | 2025-02-28 13:53 | PC.NURSE ---
Fernanda stated she needs a new PCP as she does not have one. She called [facility] to set up an appointment in my office as [facility] [place] her insurance paperwork as taking her insurance. Fernanda called [facility] to make an appointment for a new PCP and in the process was told that she already had an appointment with Dr. More in May 2025. Fernanda stated she wanted a sooner appointment thus decided to cancel the appointment with Dr. More and set up a new appointment for Saturday April 12, 2025 at 10:[address] Chan at [address] [place] [address].
--- NOTE | 2025-03-01 23:54 | P.PNPSP_ITS ---
Subjective Subjective Date of Service: 02/28/25 Reason For Visit: depression Interim History: Patient seen for follow-up. Mood is the same still feeling very depressed extremely tired she has a history of ADHD and was on Adderall in the past (noted to be prescribed last in June) she feels she had done well on it can can not recall why she stopped it. Denies any issues with alcohol or substances. Says she has bad it maintaining habits. Motivation and energy are low she is noted to have a history of anemia when reviewing her lab work. She has a history of a blood transfusion 2 years ago due to the anemia after having. That lasted almost 3 weeks she eventually got dizzy and had to go the emergency room says her bowel movements are usually regular they are not black although in the past she has had about or 2 of at were black but not sticky urine is normal color her menses is irregular and she gets about every 2-3 months is agreeable to getting lab work today denies any thoughts of giving up on life denies any thoughts of self- harm. Denies SOB, CP, palpitations, cough, weight loss, fevers, chills. FH anemia in other family members denies any identified causes for anemia, denies any hx of bleeding or blood clotting disorders or dyscrasias. Father with HTN. Family is from [facility]. Medication Compliance: Yes Side effects from medications: No Attending Groups: Yes Review of Systems Acute medical concerns: No Mental Status Exam Mental Status Exam Narrative: Alert, oriented, in no acute distress. Calm, cooperative, engaged. Mild neurovegetative retardation (vs fatigue). Eye contact maintained. Mood depressed, affect blunted, moments of brightening. Speech normal, soft, no latency. Thought process linear, coherent. Thought content related to stressors, transient helplessness, denies hopelessness, SI or HI. No paranoia or delusional content elicited. No evidence of psychosis. Insight and judgment - fair-good. Diagnostics Vital Signs (24Hr): BMI result Body Mass Index 38.3 Assessment & Plan Assessment & Plan (1) MDD (major depressive disorder), recurrent severe, without psychosis: Status: Acute Code(s): F33.2 - Major depressive disorder, recurrent severe without psychotic features (2) ADHD (attention deficit hyperactivity disorder), inattentive type: Status: Acute Code(s): F90.0 - Attention-deficit hyperactivity disorder, predominantly inattentive type (3) Anemia: Status: Acute Code(s): D64.9 - Anemia, unspecified Plan continue PHP start Abilify 1-2 mg qd start Adderall XR 15 mg qam continue regular medications for now Routine lab work as indicated - will check peripheral blood, LDH, Hb electro given hx of chronic anemia EKG, routine for baseline QTc for medication considerations as indicated UDS as indicated [facility] reviewed - Adderall XR 15 rxed 06/2024 VS reviewed (02/15): afebrile, BP 101/76;?106 bpm (tachy possibly 2/t anemia) Continue to monitor Patient educated on: diagnosis and medication risk/benefits Informed Consent: understands Reason for contiued partial hosp. stay Substantial Risk for: inability to function and med/psych decompensation Certification I certify that partial hospital treatment is medically necessary due to the symptoms and problems resulting from the patient's mental illness and the failure to treat the patient at the partial hospital level of care would likely result in the patient requiring inpatient psychiatric care which could not be prevented at a less intensive level of care. Total time managing care of this patient today __30__ minutes. Discharge Plan Discharge Attending provider: Yanira Clinton Additional Instructions: New PCP appointment with [facility], [address] [place] [address]. on Saturday April 12, 2025 at 10:[address] Chan. Office # [phone]. Medications: New aripiprazole 2 mg tablet 2 mg PO BEDTIME Qty: 14 0RF dextroamphetamine-amphetamine [Adderall XR] 15 mg capsule,extended release 24hr 15 mg PO QAM Qty: 14 0RF Rx Instructions: Partial Fill upon patient request. ferrous sulfate [Iron (ferrous sulfate)] 325 mg (65 mg iron) tablet 325 mg PO DAILY Qty: 30 1RF Rx Instructions: on an empty stomach, at least 1-2 hours before or after meals ergocalciferol (vitamin D2) [Vitamin D2] 1,250 mcg (50,000 unit) capsule 1,250 mcg PO QWEEK Qty: 14 0RF No Action bupropion HCl 300 mg tablet extended release 24 hr 300 mg PO DAILY duloxetine 60 mg capsule,delayed release(DR/EC) 120 mg PO DAILY Stand Alone Forms: Patient Portal Discharge page Print Language: Wallisian
--- NOTE | 2025-03-06 14:06 | P.PNPSP_ITS ---
Subjective Subjective Date of Service: 03/05/25 Reason For Visit: depression Interim History: No changes this week. Still depressed. Program helpful. Still very tired, low energy and no motivatoins, did not start on stimulant as it requires PA. Started on Abilify, no side effects, had been taking 1 mg. Will titrate to 2 mg. Continues on Cymbalta and Wellbutrin. Does not feel these are very helpful. Has not been on higher dose of Wellbutrin, so we may consider titrating to 450 mg. For now will continue and fill out PA. Lab work reviewed, anemia persists. Will start on Fe supplementation and low vit D. Some lab results pending. Medication Compliance: Yes Side effects from medications: No Attending Groups: Yes Review of Systems Acute medical concerns: No Mental Status Exam Mental Status Exam Narrative: Alert, oriented, in no acute distress. Calm, cooperative, engaged. Mild neurovegetative retardation (vs fatigue). Eye contact maintained. Mood depressed, affect blunted, moments of brightening. Speech normal, soft, no latency. Thought process linear, coherent. Thought content related to stressors, transient helplessness, denies hopelessness, SI or HI. No paranoia or delusional content elicited. No evidence of psychosis. Insight and judgment - fair-good. Diagnostics Vital Signs (24Hr): BMI result Body Mass Index 38.3 Assessment & Plan Assessment & Plan (1) MDD (major depressive disorder), recurrent severe, without psychosis: Status: Acute Code(s): F33.2 - Major depressive disorder, recurrent severe without psychotic features (2) ADHD (attention deficit hyperactivity disorder), inattentive type: Status: Acute Code(s): F90.0 - Attention-deficit hyperactivity disorder, predominantly inattentive type (3) Iron deficiency anemia: Status: Inactive Code(s): D50.9 - Iron deficiency anemia, unspecified (4) Vitamin D deficiency: Status: Acute Code(s): E55.9 - Vitamin D deficiency, unspecified Plan continue PHP increase Abilify to 3-4 mg qd start Adderall XR 15 mg qam (pending PA approval) continue regular medications: Wellbutrin XL 300 mg qam (consider increasing dose) duloxetine 120 mg qd start iron supplement 325 mg qd start vitamin D2 50K weekly Routine lab work reviewed, Hb electrophoresis pending EKG, routine for baseline QTc for medication considerations as indicated UDS as indicated [facility] reviewed - Adderall XR 15 rxed 06/2024 VS reviewed (02/15): afebrile, BP 101/76;?106 bpm (tachy possibly 2/t anemia) Continue to monitor Patient educated on: diagnosis and medication risk/benefits Informed Consent: understands Reason for contiued partial hosp. stay Substantial Risk for: inability to function and med/psych decompensation Certification I certify that partial hospital treatment is medically necessary due to the symptoms and problems resulting from the patient's mental illness and the failure to treat the patient at the partial hospital level of care would likely result in the patient requiring inpatient psychiatric care which could not be prevented at a less intensive level of care. Total time managing care of this patient today _30___ minutes. Discharge Plan Discharge Attending provider: Yanira Clinton Additional Instructions: New PCP appointment with [facility], [address] [place] [address], [facility]. on Saturday April 12, 2025 at 10:[address] Chan. Office # [phone]. Medications: New aripiprazole 2 mg tablet 2 mg PO BEDTIME Qty: 14 0RF dextroamphetamine-amphetamine [Adderall XR] 15 mg capsule,extended release 24hr 15 mg PO QAM Qty: 14 0RF Rx Instructions: Partial Fill upon patient request. ferrous sulfate [Iron (ferrous sulfate)] 325 mg (65 mg iron) tablet 325 mg PO DAILY Qty: 30 1RF Rx Instructions: on an empty stomach, at least 1-2 hours before or after meals ergocalciferol (vitamin D2) [Vitamin D2] 1,250 mcg (50,000 unit) capsule 1,250 mcg PO QWEEK Qty: 14 0RF No Action bupropion HCl 300 mg tablet extended release 24 hr 300 mg PO DAILY duloxetine 60 mg capsule,delayed release(DR/EC) 120 mg PO DAILY Stand Alone Forms: Patient Portal Discharge page Print Language: Wolof
--- NOTE | 2025-03-13 16:43 | HO.PHPPROGNO ---
Subjective Subjective Date of Service: 03/13/25 Reason For Visit: depression Interim History: Alright No considerable changes. She reports her mood is okay and when asked about depression, says she has a little . Still presents with blunted affect, withdrawn but engagable. Still endorses low energy and motivation, still has not picked up the ADderall XR 15 mg from pharmacy. She denies having reservations or resistance to starting back on the Adderall. I just didnt think of it . She believes it was probably helpful in the past, although does not seem to really recall how it affected her. She picked up the weekly vitamin D and daily iron supplements although has not started on these either I forgot . Struggles with routine, difficult time with building healthy habits. Still having some days where she remains in bed all day, which she says is harder to do when I come to program. I usually stay in bed all day . Tuesday she slept all day. Tuesday she did make plans and was out of bed and got out that day. Anemia could certainly account for at least some if not a significant portion of the fatigue and is reminded to take iron supplement. Has required transfusions in the past. Abilify continues at 2 mg. Denies any adverse effects. She is willing to bump up to 3.5 mg. No issues with alcohol or substance use. Denies SI. Medication Compliance: Intermittent Side effects from medications: No Attending Groups: Yes Review of Systems Acute medical concerns: No Mental Status Exam Mental Status Exam Narrative: Alert, oriented, in no acute distress. Calm, cooperative. Mild neurovegetative retardation (vs fatigue). Eye contact maintained. Mood depressed, affect blunted, moments of brightening. Speech normal, soft, no latency. Thought process linear, coherent. Thought content related to stressors, transient helplessness, denies hopelessness, SI or HI. No paranoia or delusional content elicited. No evidence of psychosis. Insight and judgment - fair but adequate. Patient Orientation: Person, Place, Time and Situation Level of Consciousness: Awake Patient Behavior: Appropriate, Cooperative and Passive Mood Description: Calm and Sad Affect Description: Blunted Patient Cognition Impaired: No Ability to Follow Directions: Good Speech Pattern: Clear Diagnostics Vital Signs (24Hr): BMI result Body Mass Index 38.3 Assessment & Plan Assessment & Plan (1) MDD (major depressive disorder), recurrent severe, without psychosis: Status: Acute Code(s): F33.2 - Major depressive disorder, recurrent severe without psychotic features (2) ADHD (attention deficit hyperactivity disorder), inattentive type: Status: Acute Code(s): F90.0 - Attention-deficit hyperactivity disorder, predominantly inattentive type (3) Iron deficiency anemia: Status: Inactive Code(s): D50.9 - Iron deficiency anemia, unspecified (4) Vitamin D deficiency: Status: Acute Code(s): E55.9 - Vitamin D deficiency, unspecified Plan continue PHP increase Abilify to 3-4 mg qd start Adderall XR 15 mg qam (pending PA approval) continue regular medications: Wellbutrin XL 300 mg qam (consider increasing dose) duloxetine 120 mg qd start iron supplement 325 mg qd start vitamin D2 50K weekly Routine lab work reviewed, Hb electrophoresis pending EKG, routine for baseline QTc for medication considerations as indicated UDS as indicated [facility] reviewed - Adderall XR 15 rxed 06/2024 VS reviewed (02/15): afebrile, BP 101/76;?106 bpm (tachy possibly 2/t anemia) Continue to monitor Patient educated on: diagnosis, medication risk/benefits and medical condition Informed Consent: understands Reason for contiued partial hosp. stay Substantial Risk for: med/psych decompensation Certification I certify that partial hospital treatment is medically necessary due to the symptoms and problems resulting from the patient's mental illness and the failure to treat the patient at the partial hospital level of care would likely result in the patient requiring inpatient psychiatric care which could not be prevented at a less intensive level of care. Total time managing care of this patient today _30___ minutes. Discharge Plan Discharge Attending provider: Yanira Clinton Additional Instructions: New PCP appointment with [facility], [address] [place] [address]. on Saturday April 12, 2025 at 10:[address] Chan. Office # [phone]. Medications: New aripiprazole 2 mg tablet 2 mg PO BEDTIME Qty: 14 0RF dextroamphetamine-amphetamine [Adderall XR] 15 mg capsule,extended release 24hr 15 mg PO QAM Qty: 14 0RF Rx Instructions: Partial Fill upon patient request. ferrous sulfate [Iron (ferrous sulfate)] 325 mg (65 mg iron) tablet 325 mg PO DAILY Qty: 30 1RF Rx Instructions: on an empty stomach, at least 1-2 hours before or after meals ergocalciferol (vitamin D2) [Vitamin D2] 1,250 mcg (50,000 unit) capsule 1,250 mcg PO QWEEK Qty: 14 0RF aripiprazole 5 mg tablet 5 mg PO BEDTIME Qty: 14 0RF No Action bupropion HCl 300 mg tablet extended release 24 hr 300 mg PO DAILY duloxetine 60 mg capsule,delayed release(DR/EC) 120 mg PO DAILY Stand Alone Forms: Patient Portal Discharge page Print Language: Cymraes
--- NOTE | 2025-03-15 23:25 | P.PNPSP_ITS ---
Subjective Subjective Date of Service: 03/15/25 Reason For Visit: depression Interim History: Patient seen for follow-up, anticipating discharge at the end of program today.? Patient was delayed in increasing dose to 3.5 mg, started last night. Denies any adverse effects. Talk about struggles w routine, motivation and executive fxn, acknowledges need to return to stimulant medication. Says she has not gone to pharmacy yet to fill stimulant. will follow up with her provider who has prescribed Adderall last year. She did start on daily iron and weekly vitamin D supplements. Reports no acute issues or concerns. Medication compliant, medications well- tolerated. Denies any adverse effects.? Mood is stable.? Denies any hopelessness or SI. Denies thoughts of harming self or others at this time. Denies any aggressive ideation or HI. Denies any paranoia or AH or VH. Sleep, appetite, stable, energy and motivation still low but slowly improving. Medication Compliance: Intermittent Side effects from medications: No Attending Groups: Yes Review of Systems Acute medical concerns: No Mental Status Exam Mental Status Exam Narrative: Alert, oriented, in no acute distress. Calm, cooperative. Mild neurovegetative retardation (vs fatigue). Eye contact maintained. Mood imrpved, affect blunted, moments of brightening. Speech normal, soft, no latency. Thought process linear, coherent. Thought content related to stressors, denies hopelessness, SI or HI. No paranoia or delusional content elicited. No evidence of psychosis. Insight and judgment - fair but adequate. Patient Orientation: Person, Place, Time and Situation Level of Consciousness: Awake Patient Behavior: Appropriate, Cooperative and Passive Mood Description: Calm and Sad Affect Description: Blunted Patient Cognition Impaired: No Ability to Follow Directions: Good Speech Pattern: Clear Diagnostics Vital Signs (24Hr): BMI result Body Mass Index 38.3 Assessment & Plan Assessment & Plan (1) MDD (major depressive disorder), recurrent severe, without psychosis: Status: Acute Code(s): F33.2 - Major depressive disorder, recurrent severe without psychotic features (2) ADHD (attention deficit hyperactivity disorder), inattentive type: Status: Acute Code(s): F90.0 - Attention-deficit hyperactivity disorder, predominantly inattentive type (3) Vitamin D deficiency: Status: Acute Code(s): E55.9 - Vitamin D deficiency, unspecified Plan [facility]charge from [facility] Continue regular medications? Refills sent to pharmacy Will defer further medication management to outpatient provider *Safety plan reviewed *Discharge diagnoses, treatment course, discharge plan have been reviewed with patient (including medication regime, medication management, potential side effects) as well as treatment rationale were also revisited *Discharge paperwork signed and given to patient, copy sent for scanning to chart Patient educated on: diagnosis, medication risk/benefits and medical condition Informed Consent: understands Reason for contiued partial hosp. stay Substantial Risk for: stable for discharge Certification I certify that partial hospital treatment is medically necessary due to the sym ptoms and problems resulting from the patient's mental illness and the failure to treat the patient at the partial hospital level of care would likely result in the patient requiring inpatient psychiatric care which could not be prevented at a less intensive level of care. Total time managing care of this patient today ____ minutes. Discharge Plan Discharge Attending provider: Yanira Clinton Additional Instructions: New PCP appointment with [facility], [address] [place] [address], [facility]. on Saturday April 12, 2025 at 10:[address] Chan. Office # [phone]. Medications: New aripiprazole 2 mg tablet 2 mg PO BEDTIME Qty: 14 0RF dextroamphetamine-amphetamine [Adderall XR] 15 mg capsule,extended release 24hr 15 mg PO QAM Qty: 14 0RF Rx Instructions: Partial Fill upon patient request. ferrous sulfate [Iron (ferrous sulfate)] 325 mg (65 mg iron) tablet 325 mg PO DAILY Qty: 30 1RF Rx Instructions: on an empty stomach, at least 1-2 hours before or after meals ergocalciferol (vitamin D2) [Vitamin D2] 1,250 mcg (50,000 unit) capsule 1,250 mcg PO QWEEK Qty: 14 0RF aripiprazole 5 mg tablet 5 mg PO BEDTIME Qty: 14 0RF dextroamphetamine-amphetamine 10 mg tablet 10 mg PO BID Qty: 30 0RF Rx Instructions: administer doses at least 4-6 hours apart; Partial Fill upon patient request. For ADHD No Action bupropion HCl 300 mg tablet extended release 24 hr 300 mg PO DAILY duloxetine 60 mg capsule,delayed release(DR/EC) 120 mg PO DAILY Stand Alone Forms: Patient Portal Discharge page Patient Education: ADHD in Adults (DC), Depression (DC) Print Language: Gambian
== END 2025-03-15 23:59 | disposition home or self-care (01) ==
LOC: HO.PHPA 12:30
PROVIDERS: Visit Provider Psychiatry & Neurology Psychiatry
DX: F33.2 Major depressive disorder, recurrent severe without psychotic features (principal); F90.0 Attention-deficit hyperactivity disorder, predominantly inattentive type; D50.9 Iron deficiency anemia, unspecified; E55.9 Vitamin D deficiency, unspecified
CPT/HCPCS: 90791; 90853

== ENCOUNTER 2025-04-12 09:48 | Outpatient (AMB) | payer OTHER, SELFPAY ==
[2025-04-12 09:54] VITALS: BP 102/68; PULSE 105; RESP 18; O2SAT 99; BMI 42.3
--- NOTE | 2025-04-12 09:54 | MHC.PC.OV ---
Vital Signs 04/12/25 09:54 Height 5 ft 5 in Weight 254 lb BMI 42.3 BP 102/68 Blood Pressure Location Lt brachial Position Sitting Respiration 18 Pulse 105 H Pulse Source Pulse Oximeter Temp Source Temporal Artery Scan Pulse Oximetry (%) 99 Oxygen Delivery Method Room Air Intake Visit Reasons: Depression BLOCK TRIMMER Poultry Boner Required: No Accompanied by: Self / Same As Patient Allergies No Known Allergies (No Known Allergies*) Allergy (Verified 04/12/25 10:44) Medication List - Last Reconciled 04/12/25 by Willy Ornelas MD bupropion HCl XL 300 mg PO DAILY dextroamphetamine-amphetamine 10 mg 10 mg PO BID dextroamphetamine-amphetamine 15 mg ER (Adderall XR) 15 mg PO QAM duloxetine 120 mg PO DAILY ergocalciferol (vitamin D2) (Vitamin D2) 1,250 mcg PO QWEEK ferrous sulfate (Iron (ferrous sulfate)) 325 mg PO DAILY Tobacco use date assessed: 04/12/25 Dental Screening Dental Screen Date: 04/12/25 Did you have a dental visit in the last 12 months?: Yes Did you have a dental problem in the last 6 months where you did not have access to dental care?: No Was dental information given to patient?: Patient has dentist HPI HPI Comments History of Present Illness Details The patient is a 24 year old F with PMH of depression, irregular menses, ADHD, ZAYRA, vit D deficiency presenting to [facility]. The patient has a psychiatrist who prescribes bupropion, Adderall, and duloxetine. The patient has a history of anemia and irregular menstruation. About four years ago, the patient went six months without a menstrual period and started taking iron pills at that time. Currently, menses are more regular but still sometimes skip a month, with the last period occurring two months ago. The patient reports taking [id number] iron drops. Blood work from March showed a hemoglobin of 10.1, MCV of 75, and low iron saturation, consistent with microcytic anemia. The patient also reports getting lightheaded easily and feeling tired after walking for 5-10 minutes. The patient has vitamin D deficiency, with a level of 16.9 noted on labs from March. The patient was recently prescribed vitamin D after attending a partial program at [facility] and is taking it weekly. The patient reports problems with binge eating, a topic brought up by the patient's therapist. The patient notes that the current dose of Adderall is not as effective for concentration or binge eating as it was in the past and is considering discussing a higher dose with the psychiatrist. The patient has not seen an FOOD SERVICE REPRESENTATIVE in about a year and a half. [facility] Medical History History of anemia Social History Household Members: Family Household Members Other:: Mother and Father Alcohol intake: never Comment: Extension TBD, authorization until 03/22 Patient Tobacco Use Status: Never used Tobacco Tobacco use type: Cigarette Current occupational status: unemployed Female Reproductive History Menstrual Age of Menarche: 8 Questionnaire PHQ-9 Over the last 2 weeks, how often have you been bothered by any of the following problems? 1. Little interest or pleasure in doing things: several days 2. Feeling down, depressed, or hopeless: more than half the days 3. Trouble falling or staying asleep, or sleeping too much: more than half the days 4. Feeling tired or having little energy: more than half the days 5. Poor appetite or overeating: several days 6. Feeling bad about yourself - or that you are a failure or have let yourself or your family down: nearly every day 7. Trouble concentrating on things, such as reading the newspaper or watching television: more than half the days 8. Moving or speaking so slowly that other people could have noticed. Or the opposite - being so fidgety or restless that you have been moving around a lot more than usual: not at all 9. Thoughts that you would be better off or of hurting yourself in some way: more than half the days Total score: 15 Depression Screening Interpretation: Positive Depression Screening Follow-up: In treatment (Follows with psyc, on Duloxetine, Bupropion, Adderall ) Depression Screening Done: Yes Source: Developed by Drs. Chucho Bateman, Marysol Haney, Trell Casanova and colleagues, with an educational jessenia from [employer]. Thrive Questionnaire Date Thrive assessed: 04/12/25 I am a: Patient What is your living situation today?: I have a steady place to live Within the past 12 months, did the food you bought not last and you didn't have the money to get more?: Sometimes True Within the past 12 months, did you worry whether your food would run out before you got money to buy more?: Never true Do you have trouble paying for medicines?: No Do you have trouble getting transportation to medical appointments?: No Do you have trouble paying your heating and electricity bill?: No Do you have trouble taking care of your child, family member or friend?: No Do you have trouble with day-to-day activities such as bathing, preparing meals, shopping, managing finances, etc.?: No Are you currently unemployed and looking for a job?: Yes Are you interested in more education?: Yes Please select the resources that you would like help with: Daily support, Job search/training and Education Currently or been in a relationship where the following occur: No concerns reported THRIVE Score: 1 AUDIT C Alcohol Use Questionnaire (AUDIT-C) 1. How often do you have a drink containing alcohol?: Never Total Score: 0 BLAKE-7 AMB Questionnaire BLAKE-7 Date BLAKE - 7 assessed: 04/12/25 Feeling nervous, anxious, or on edge: 1 = Several days Not being able to stop or control worryin = More than half the days Worrying too much about different things: 2 = More than half the days Trouble relaxin = Several days Being so restless that it is hard to sit still: 1 = Several days Becoming easily annoyed or irritable: 2 = More than half the days Feeling afraid as if something awful might happen: 2 = More than half the days Total BLAKE-7 score (0-4 normal; 5-9 mild; 10-14 moderate; 15-21 severe): 11 Source: Developed by Drs. Chucho Bateman, Marysol Haney, Trell Casanova and colleagues, with an educational jessenia from [employer]. Physical exam (Primary Care) Vital Signs: Last Vital Signs Pulse 105 H 04/12/25 09:54 Resp 18 04/12/25 09:54 BP 102/68 04/12/25 09:54 Pulse Ox 99 04/12/25 09:54 Oxygen Delivery Method Room Air 04/12/25 09:54 BMI result Body Mass Index 42.3 Tobacco/Smoking Status: Tobacco use Status Tobacco use date assessed 04/12/25 04/12/25 09:57 Patient Tobacco Use Status Never used Tobacco 04/12/25 09:57 Tobacco use type Cigarette 04/12/25 09:57 PHQ-9: PHQ-9 Score PHQ-9: Total score 15 04/12/25 10:42 Depression Screening Interpretation: Positive Depression Screening Follow-up: In treatment (Follows with psyc, on Duloxetine, Bupropion, Adderall ) Thrive Assessment: Date of Thrive Assessment Date Thrive assessed 04/12/25 04/12/25 09:57 Currently or been in a relationship where the following occur: No concerns reported Coding Level of Care Code New Pt Level 4 (37340) Diagnoses Irregular menstrual cycle N92.6 ADHD (attention deficit hyperactivity disorder), inattentive type F90.0 MDD (major depressive disorder), recurrent severe, without psychosis F33.2 Vitamin D deficiency E55.9 Hypochromic-microcytic anemia D50.9 Class 3 severe obesity due to excess calories with body mass index (BMI) of 40.0 to 44.9 in adult, unspecified whether serious comorbidity present E66.813; Z68.41 Obesity type: due to excess calories Obesity classification: adult class 3 (BMI >= 40) Serious obesity comorbidity presence: unspecified whether serious comorbidity present Body mass index: BMI 40.0-44.9 Tachycardia R00.0 Time Spent (min) 45 Assessment & Plan Assessment & Plan (1) Irregular menstrual cycle: Code(s): N92.6 - Irregular menstruation, unspecified Category: Medical Plan: - A referral will be sent to FOOD SERVICE REPRESENTATIVE for further evaluation and management, as well as for routine health maintenance including a Pap smear. (2) ADHD (attention deficit hyperactivity disorder), inattentive type: Code(s): F90.0 - Attention-deficit hyperactivity disorder, predominantly inattentive type Category: Medical Plan: Follows with Sal Saccoccio. Continue Adderall XR. (3) MDD (major depressive disorder), recurrent severe, without psychosis: Code(s): F33.2 - Major depressive disorder, recurrent severe without psychotic features Category: Medical Plan: Follows with Sal Saccoccio. On Duloxetine, Bupropion. (4) Vitamin D deficiency: Code(s): E55.9 - Vitamin D deficiency, unspecified Category: Medical Plan: - A new prescription for vitamin D 1250 mcg (50,000 IU) to be taken once weekly was sent to [facility] in [place]. (5) Hypochromic-microcytic anemia: Code(s): D50.9 - Iron deficiency anemia, unspecified Category: Medical Plan: - The patient's symptoms of lightheadedness and exertional fatigue are likely due to anemia. - The patient will continue taking swck-suh-nszbhtv iron drops. - Repeat hemoglobin and iron profile labs are ordered for 3 months. (6) Obesity: Code(s): E66.9 - Obesity, unspecified Category: Medical Qualifiers: Obesity type: due to excess calories Obesity classification: adult class 3 (BMI >= 40) Serious obesity comorbidity presence: unspecified whether serious comorbidity present Body mass index: BMI 40.0-44.9 Qualified Code(s): E66.813 - Obesity, class 3; Z68.41 - Body mass index [BMI] 40.0-44.9, adult Plan: Suspected Binge eating disorder. - A referral will be placed to a weight management clinic for further discussion of treatment options, including GLP-1 agonists. - It was noted that ADHD medications like Adderall can help with binge eating. - The patient was advised to discuss adjusting the Adderall dosage with the psychiatrist, as the current dose is perceived as less effective for concentration and binge eating. (7) Tachycardia: Code(s): R00.0 - Tachycardia, unspecified Category: Medical Plan: - The patient's elevated heart rate will be monitored, as it is likely secondary to anemia. - The patient was advised to report any persistent rapid heartbeat or chest pain. Plan I have established care with this 24 year old female today. We reviewed recent lab work from March, which showed microcytic anemia and vitamin D deficiency. I explained that symptoms of fatigue and lightheadedness are likely related to the anemia. I have placed referrals to FOOD SERVICE REPRESENTATIVE for irregular menstruation and to the weight management clinic for binge eating, explaining that the specialty clinic is better equipped to handle prior authorizations for medications like GLP-1 agonists. I advised the patient to continue with fsbd-qwt-alwogrv iron supplements and refilled the vitamin D prescription. We will recheck hemoglobin and an iron profile in three months and follow up at that time. I also instructed the patient to report any worsening chest pain or palpitations. Orders: Orders Complete Blood Count no Diff 3 Months D64.9 - Anemia, unspecified IRON PROFILE 3 Months D64.9 - Anemia, unspecified Referrals FOOD SERVICE REPRESENTATIVE Referral D64.9 - Anemia, unspecified, N92.6 - Irregular menstruation, unspecified Medical Weight Management Referral E66.9 - Obesity, unspecified Medications: Refilled ergocalciferol (vitamin D2) (Vitamin D2) 1,250 mcg PO QWEEK 14 caps 3RF Discontinued ferrous sulfate (Iron (ferrous sulfate)) on an empty stomach, at least 1-2 hours before or after meals Discontinued Reason: Duplicate 325 mg PO DAILY 30 tabs 1RF
--- OUTSIDE RECORDS SUMMARY | 2025-04-12 10:31 | XMS_ITS | Encounter Summary ---
Author Organization [facility] Address [address] [place] [id number] Phone Care Team Providers Care Sorting Machine Operator Name Role Phone Lenora Clinton MD Primary Care Provider Encounter Details Date Type Department Care Team (Late st Contact Info) Description 07/19/2016 Documentation [facility] [place] Family Medicine [address] [place] [address] Family Medicine, Physician [address], [place] [phone] Social History Tobacco Use Types Packs/Day Years Used Date Smoking Tobacco: Never Assessed Comments Unknown Sex and Gender Information Value Date Recorded Sex Assigned at Not on file Legal Sex Female 5:22 PM EDT Gender Identity Not on file Sexual Orientation Not on file documented as of this encounter Plan of Treatment Not on file documented as of this encounter Visit Diagnoses Not on filedocumented in this encounter Care Teams Sorting Machine Operator Relationship Specialty Start Date End Date Lenora Clinton MD [address] [place] [id number] PCP - General 12/31/16 08/30/22 documented as of this encounter
--- OUTSIDE RECORDS SUMMARY | 2025-04-12 10:31 | XMS_ITS | Encounter Summary ---
Author Organization [facility] Address [address] [place] [phone] Phone Care Team Providers Care Fisher Weir Name Role Phone Lenora Clinton MD Primary Care Provider Encounter Details Date Type Department Care Team (Late st Contact Info) Description 01/06/2010 [place]ation [facility] [place] [address] [place] [address] Family Medicine, Physician [address], [place] [phone] Social History Tobacco Use Types Packs/Day Years [...] on filedocumented in this encounter Care Teams Fisher Weir Relationship Specialty Start Date End Date Lenora Clinton MD [address] [place] [phone] PCP - General 12/31/16 08/30/22 documented as of this encounter
--- OUTSIDE RECORDS SUMMARY | 2025-04-12 10:31 | XMS_ITS | Clinical Summary ---
Author Organization [facility] Address [address] [place], [place] [phone] Phone Care Team Providers Care Seamless Tube Mill Operator Name Role Phone Unavailable Primary Care Provider Unavailabl e Medications amphetamine-dextro amphetamine XR 30 MG 24 hr capsule 10/30/2017 Ac tive venlafaxine 225 MG tablet sustained-release 24 hour 24 hr tablet 10/27/2017 Active Active Problems Problem Noted Date Diagnosed Date Sedimentation rate elevation 07/19/2016 ADHD (attention deficit hype ractivity disorder), inattentive type 07/16/2016 Eating disorder 07/16/2016 Mood disorder 07/16/2016 Immunizations Immunization Administration Dates Next Due DTaP 5 08/23/2002, 0,02/10/1999,12/04,1998 HPV, Quadrivalent 11/04/2014,01/29/2014,11/29/19 14 Hep A, ped/adol 11/28/2013,01/05/2011 Hep B, ped/adol 02/10/1999,1998,1998 Hib (PRP-T) 11/05/1999, 9,1998,09/25 IPV 08/23/2002, 0,1998,09/25 Influenza Split 02/08/2013,02/09/2012 Influenza, injectable, quadrivalent 06/18/2015 Influenza, injectable, quadr ivalent, preservative free 03/13/2014 Influenza, intranasal, trivalent 01/05/2011 MMR 08/23/2002,08/06/1999 Meningococcal Conj (Menactra) MCV4P 11/04/2014,0 01/02/2010 Pneumococcal Conjugate 09/08/2000,02/09/2000 Tdap 01/02/2010 Varicella 01/01/2009,08/06/1999 Family History Relation Name Status Comments Father Alive Father: Alive a nd well, coronary artery disease Maternal Grandmother Materna l grandmother: Hypertension Mother Alive Mother: Alive a nd well Other Family history of Heart disease, No family history of Cancer, Family history of Hypertension, No family history of Thrombophilia Paternal Grandfather Paterna l grandfather: , cardiac Paternal Grandmother Paterna l grandmother: Sudden /[place] under age 55, , Hypertension Sister Alive Sister: Alive a nd well Social History Tobacco Use Types Packs/Day Years Used Date Smoking Tobacco: Never Comments:Never smoker Comments Unknown Sex and Gender Information Value Date Recorded Sex Assigned at Not on file Legal Sex Female 5:22 PM EDT Gender Identity Not on file Sexual Orientation Not on file Last Filed Vital Signs Vital Sign Reading Time Taken Comments Blood Pressure 117/80 01/13/2017 12:00 AM EDT Pulse 89 01/13/2017 12:00 AM EDT Temperature 36.7 C (98 F) 01/13/2017 12:00 AM EDT Respiratory Rate - - Oxygen Saturation - - Inhaled Oxygen Concentration - - Weight 88.5 kg (195 lb) 01/13/2017 12:00 AM EDT Height 163.2 cm (5' 4.25 ) 01/13/2017 12:00 AM E DT Body Mass Index 33.21 01/13/2017 12:00 AM EDT Plan of Treatment Health Maintenance Due Date Last Done Comments DTaP,Tdap,and Td Vaccines (7 - Td or Tdap) 01/03/2020 01/02/2010, 08/23/2002, 02/09/2000, Additional history exists Influenza Vaccines (#1) 2024 06/18/19 16, 03/13/2014, 02/08/2013, Additional history exists COVID-19 Vaccine ( season) 2025 Hepatitis B Vaccines Completed 02/10/1999, 1998, 1998 HIB Vaccines Completed 11/05/1999, 01/22, 1998, Additional history exists Pneumococcal Vaccine Completed 09/08/2000, 02/09/20 IPV Vaccines Completed 08/23/2002, 07/21, 1998, Additional history exists MMR Vaccines Completed 08/23/2002, 08/06/1999 Varicella Vaccines Completed 01/01/2009, 08/06/1999 Hepatitis A Vaccines Completed 11/28/2013, 01/06/20 11 HPV Vaccines Completed 11/04/2014, 01/2014, 11/28/2013 Meningococcal Vaccine Completed 11/04/2014, 010 Men B Vaccine Aged Out No longer elig donna based on patient's age to complete this topic Insurance [facility]
--- OUTSIDE RECORDS SUMMARY | 2025-04-12 10:31 | XMS_ITS | Encounter Summary ---
Author Organization [facility] Address [address] [place] [phone] Phone Care Team Providers Care Presser And Shaper Knitted Goods Name Role Phone Lenora Clinton MD Primary Care Provider Encounter Details Date Type Department Care Team (Late st Contact Info) Description 12/03/2013 Documentation [facility] [place] [address] [place] [address] Family Medicine, Physician [address], [place] [phone] Social History Tobacco Use Types Packs/Day Years [...] on filedocumented in this encounter Care Teams Presser And Shaper Knitted Goods Relationship Specialty Start Date End Date Lenora Clinton MD [address] [place] [phone] PCP - General 12/31/16 08/30/22 documented as of this encounter
--- OUTSIDE RECORDS SUMMARY | 2025-04-12 10:31 | XMS_ITS | Encounter Summary ---
Author Organization [facility] Address [address] [place] [phone] Phone Care Team Providers Care Cylinder Press Operator Helper Name Role Phone Lenora Clinton MD Primary Care Provider Encounter Details Date Type Department Care Team (Late st Contact Info) Description 09/14/2016 Documentation [facility] [place] Family Medicine [address] [place] [address] Family Medicine, Physician [address] [phone] Social History Tobacco Use Types Packs/Day Years [...] on filedocumented in this encounter Care Teams Cylinder Press Operator Helper Relationship Specialty Start Date End Date Lenora Clinton MD [address] [place] [phone] PCP - General 12/31/16 08/30/22 documented as of this encounter
--- OUTSIDE RECORDS SUMMARY | 2025-04-12 10:31 | XMS_ITS | Encounter Summary ---
Author Organization [facility] Address [address] [place] [id number] Phone Care Team Providers Care Mica Laminating Machine Feeder Name Role Phone Lenora Clinton MD Primary Care Provider Encounter Details Date Type Department Care Team (Late st Contact Info) Description 08/17/2016 Documentation [facility] [place] Family Medicine [address] [place] [address] Family Medicine, Physician [address], [place] [phone] Social History Tobacco Use Types Packs/Day Years [...] on filedocumented in this encounter Care Teams Mica Laminating Machine Feeder Relationship Specialty Start Date End Date Lenora Clinton MD [address] [place] [phone] PCP - General 12/31/16 08/30/22 documented as of this encounter
--- OUTSIDE RECORDS SUMMARY | 2025-04-12 10:31 | XMS_ITS | Encounter Summary ---
Author Organization [facility] Address [address] [place] [phone] Phone Care Team Providers Care Auto Body Repairer Name Role Phone Lenora Clinton MD Primary Care Provider Encounter Details Date Type Department Care Team (Late st Contact Info) Description 07/16/2011 Documentation [facility] [place] Family Medicine [address] [place] [address] Family Medicine, Physician [address], [place] [phone] Social History Tobacco Use Types Packs/Day Years [...] on filedocumented in this encounter Care Teams Auto Body Repairer Relationship Specialty Start Date End Date Lenora Clinton MD [address] [place] [phone] PCP - General 12/31/16 08/30/22 documented as of this encounter
--- OUTSIDE RECORDS SUMMARY | 2025-04-12 10:31 | XMS_ITS | Encounter Summary ---
Author Organization [facility] Address [address] [place] [address] Phone Care Team Providers Care Coordinator Of Evaluation Name Role Phone Lenora Clinton MD Primary Care Provider Encounter Details Date Type Department Care Team (Late st Contact Info) Description 01/06/2010 Documentation [facility] [place] [address] [place] [address] Family Medicine, Physician [address], [place] [phone] Social History Tobacco Use Types Packs/Day Years [...] on filedocumented in this encounter Care Teams Coordinator Of Evaluation Relationship Specialty Start Date End Date Lenora Clinton MD [address] [place] [phone] PCP - General 12/31/16 08/30/22 documented as of this encounter
--- OUTSIDE RECORDS SUMMARY | 2025-04-12 10:31 | XMS_ITS | Encounter Summary ---
Author Organization [facility] Address [address] [place] [address] Phone Care Team Providers Care Supervisor Cleaning And Annealing Name Role Phone Lenora Clinton MD Primary Care Provider Encounter Details Date Type Department Care Team (Late st Contact Info) Description 10/23/2015 Documentation [facility] [place] Family Medicine [address] [place] [address] Family Medicine, Physician [address] [place], [place] [phone] Social History Tobacco Use Types Packs/Day Years [...] on filedocumented in this encounter Care Teams Supervisor Cleaning And Annealing Relationship Specialty Start Date End Date Lenora Clinton MD [address] [place] [phone] PCP - General 12/31/16 08/30/22 documented as of this encounter
--- OUTSIDE RECORDS SUMMARY | 2025-04-12 10:31 | XMS_ITS | Encounter Summary ---
Author Organization [facility] Address [address] [place] [address] Phone Care Team Providers Care Test Specialist Name Role Phone Lenora Clinton MD Primary Care Provider [phone] Encounter Details Date Type Department Care Team (Late st Contact Info) Description 01/06/2017 Conversion Encounter [facility] [place] [address] [place] [address] Social History Tobacco Use Types Packs/Day Years [...] on filedocumented in this encounter Care Teams Test Specialist Relationship Specialty Start Date End Date Lenora Clinton MD [address] [place] [address] PCP - General 12/31/16 08/30/22 documented as of this encounter
--- OUTSIDE RECORDS SUMMARY | 2025-04-12 10:31 | XMS_ITS | Encounter Summary ---
Author Organization [facility] Address [address] [place] [address] Phone Care Team Providers Care Freight Elevator Erector Name Role Phone Lenora Clinton MD Primary Care Provider Encounter Details Date Type Department Care Team (Late st Contact Info) Description 08/23/2016 Documentation [facility] [place] [address] [place] [address] Family Medicine, Physician [address], [place] [phone] Social History Tobacco Use Types Packs/Day Years [...] on filedocumented in this encounter Care Teams Freight Elevator Erector Relationship Specialty Start Date End Date Lenora Clinton MD [address] [place] [phone] PCP - General 12/31/16 08/30/22 documented as of this encounter
--- OUTSIDE RECORDS SUMMARY | 2025-04-12 10:31 | XMS_ITS | Encounter Summary ---
Author Organization [facility] Address [address] [place] [address] Phone Care Team Providers Care Trim Operator Name Role Phone Lenora Clinton MD Primary Care Provider Encounter Details Date Type Department Care Team (Late st Contact Info) Description 08/21/2009 Documentation [facility] [place] [address] [place] [address] Family Medicine, Physician [address] [place], [place] [phone] Social History Tobacco Use Types Packs/Day Years [...] on filedocumented in this encounter Care Teams Trim Operator Relationship Specialty Start Date End Date Lenora Clinton MD [address] [place] [phone] PCP - General 12/31/16 08/30/22 documented as of this encounter
--- OUTSIDE RECORDS SUMMARY | 2025-04-12 10:31 | XMS_ITS | Encounter Summary ---
Author Organization [facility] Address [address] [place] [phone] Phone Care Team Providers Care Plugger Man Name Role Phone Lenora Clitnon MD Primary Care Provider [phone] Encounter Details Date Type Department Care Team (Late st Contact Info) Description 10/21/2015 Documentation [facility] [place] [address] [place] [address] Family Medicine, Physician [address] [place] [phone] Social History Tobacco Use Types Packs/Day Years [...] on filedocumented in this encounter Care Teams Plugger Man Relationship Specialty Start Date End Date Lenora Clinton MD [address] [place] [phone] PCP - General 12/31/16 08/30/22 documented as of this encounter
== END 2025-04-12 11:05 | disposition home or self-care (01) ==
LOC: HO.HMCH 09:49
PROVIDERS: Visit Provider Internal Medicine
DX: N92.6 Irregular menstruation, unspecified (principal); F33.2 Major depressive disorder, recurrent severe without psychotic features; E66.813 Obesity, class 3; Z68.41 Body mass index [BMI] 40.0-44.9, adult; F90.0 Attention-deficit hyperactivity disorder, predominantly inattentive type; E55.9 Vitamin D deficiency, unspecified; D50.9 Iron deficiency anemia, unspecified; R00.0 Tachycardia, unspecified

== ENCOUNTER → 2025-04-12 09:48 | Outpatient (BNVA) | payer OTHER, SELFPAY | PROVIDERS: Visit Provider Internal Medicine | DX: F33.2 Major depressive disorder, recurrent severe without psychotic features (principal); F90.0 Attention-deficit hyperactivity disorder, predominantly inattentive type; D64.9 Anemia, unspecified; N92.6 Irregular menstruation, unspecified; E55.9 Vitamin D deficiency, unspecified; D50.9 Iron deficiency anemia, unspecified; E66.813 Obesity, class 3; R00.0 Tachycardia, unspecified; Z68.41 Body mass index [BMI] 40.0-44.9, adult | CPT/HCPCS: 99202 ==